=== PATIENT | male | born 1990 | race Caucasian/White ===

== ENCOUNTER 2023-02-24 09:02 | Observation (INO) | payer OTHER ==
[~2023-02-24] VITALS: Ht 193 cm; Wt 78.9 kg
[~2023-02-24 09:02] MED LIST: ALBU90OI; AZIT250 PO; Prilosec20 MG PO; SULTRIDS
[2023-02-24 10:07] LABS: BASOPHILS ABSOLUTE AUTO 0.06 K/mm3 (0.00-0.23); BASOPHILS PERCENT AUTO 0 % (0-2); EOSINOPHILS ABSOLUTE AUTO 0.01 K/mm3 (0.00-0.68); EOSINOPHILS PERCENT AUTO 0 % (0-6); Hematocrit 53.8 % (37.0-53.0); Hemoglobin 19.3 g/dL (13.5-17.5); IMMATURE GRAN ABSOLUTE AUTO 0.15 K/mm3 (0.00-0.10); IMMATURE GRAN PERCENT AUTO 1 % (0-1); LYMPHOCYTES ABSOLUTE AUTO 2.94 K/mm3 (0.84-5.20); LYMPHOCYTES PERCENT AUTO 12 % (21-46); MONOCYTES ABSOLUTE AUTO 1.29 K/mm3 (0.16-1.47); MONOCYTES PERCENT AUTO 5 % (4-13); Mean Corpuscular HGB 30.7 pg (26.0-34.0); Mean Corpuscular HGB Conc 35.9 g/dL (31.5-36.5); Mean Corpuscular Volume 86 fL (80-100); Mean Platelet Volume 10.2 fL (9.1-12.4); NEUTROPHILS ABSOLUTE AUTO 19.63 K/mm3 (1.96-9.15); NEUTROPHILS PERCENT AUTO 82 % (41-73); Platelet Count 473 K/mm3 (150-400); RDW Coefficient Variation 12.1 % (11.7-14.2); Red Blood Cell Count 6.28 M/mm3 (4.30-5.90); White Blood Cell Count 24.08 K/mm3 (4.00-11.30)
[2023-02-24 10:28] LABS: Albumin, Blood 4.7 g/dL (3.4-5.0); Bun/Creatinine Ratio 19.6 (12.0-20.0); Calcium, Blood 11.5 mg/dL (8.5-10.1); Creatinine, Blood 1.94 mg/dL (0.60-1.20); Globulin, Blood 4.9 g/dL (2.2-4.0); Potassium, Blood 3.7 mmol/L (3.5-5.5); Total Protein, Blood 9.6 g/dL (6.4-8.2)
[2023-02-24 13:09] LABS: Source, Urine Clean Catch
[2023-02-24 13:12] LABS: Appearance, Urine Clear (Clear); Bilirubin, Urine Neg (Neg); Blood, Urine 4+ (Neg); Color, Urine Amber (P-Yellow); Glucose Qualitative, Urine Neg (Neg); Ketones, Urine 4+ (Neg); Leukocyte Esterase, Urine Neg (Neg); Nitrite, Urine Neg (Neg); Protein, Urine 3+ (Neg); Urobilinogen, Urine NORM (Normal)
[2023-02-24 13:30] LABS: Amorphous Light (0-Heavy); Bacteria Few /hpf; Squamous Epithelial Cells Rare /hpf (Few)
[2023-02-24 13:39] LABS: U Amphetamine Screen Not Detected; U Barbituate Screen Not Detected; U Benzodiazapine Screen Not Detected; U Buprenorphine Screen Not Detected; U Cannabinoids Screen DETECTED; U Cocaine Screen Not Detected; U Methadone Screen Not Detected; U Methamphetamine Screen Not Detected; U Opiates Screen Not Detected; U Oxycodone Screen Not Detected; U Phencyclidine Screen Not Detected; U Propoxyphene Screen Not Detected
[2023-02-24 14:23] VITALS: BP 134/87
[2023-02-24] MEDS ORDERED: DOXYLAMINE SUCCINATE PO (14:36)
[2023-02-24 16:07] VITALS: BP 149/90
[2023-02-24 16:57] LABS: Bun/Creatinine Ratio 22.4 (12.0-20.0); Creatinine, Blood 1.34 mg/dL (0.60-1.20); Potassium, Blood 3.9 mmol/L (3.5-5.5)
[2023-02-24 16:59] LABS: Calcium, Blood 9.4 mg/dL (8.5-10.1)
--- NOTE | 2023-02-24 17:42 | NUR ---
SHIFT SUMMARY ARRIVED TO FLOOR THIS SHIFT FROM ED. NO C/O NAUSEA OR VOMITING THIS SHIFT, TOLERATING REGULAR DIET SO FAR. VOIDING WELL WITH NO COMPLICATIONS. NO C/O PAIN. RUNNING FLUIDS. WILL CONTIUE TO MONITOR
[2023-02-24 19:34] VITALS: BP 128/74
--- NOTE | 2023-02-25 03:37 | NUR ---
REPORT RECIEVED A/O VSS QUIET IN RM NO S/S OF DISTRESS WILL CONT TO MONITOR PT, PT INDEPENDANT IN RM.
[2023-02-25 03:38] VITALS: BP 118/74
[2023-02-25 05:31] LABS: BASOPHILS ABSOLUTE AUTO 0.03 K/mm3 (0.00-0.23); BASOPHILS PERCENT AUTO 0 % (0-2); EOSINOPHILS ABSOLUTE AUTO 0.01 K/mm3 (0.00-0.68); EOSINOPHILS PERCENT AUTO 0 % (0-6); Hemoglobin 15.6 g/dL (13.5-17.5); IMMATURE GRAN ABSOLUTE AUTO 0.11 K/mm3 (0.00-0.10); IMMATURE GRAN PERCENT AUTO 1 % (0-1); LYMPHOCYTES ABSOLUTE AUTO 3.57 K/mm3 (0.84-5.20); LYMPHOCYTES PERCENT AUTO 16 % (21-46); MONOCYTES ABSOLUTE AUTO 2.16 K/mm3 (0.16-1.47); MONOCYTES PERCENT AUTO 10 % (4-13); Mean Corpuscular HGB 30.6 pg (26.0-34.0); Mean Corpuscular HGB Conc 35.5 g/dL (31.5-36.5); Mean Corpuscular Volume 86 fL (80-100); Mean Platelet Volume 10.6 fL (9.1-12.4); NEUTROPHILS ABSOLUTE AUTO 16.64 K/mm3 (1.96-9.15); NEUTROPHILS PERCENT AUTO 74 % (41-73); Platelet Count 344 K/mm3 (150-400); RDW Coefficient Variation 12.2 % (11.7-14.2); RDW Standard Deviation 38.4 fL (35.1-46.3); White Blood Cell Count 22.52 K/mm3 (4.00-11.30)
[2023-02-25 05:51] LABS: Albumin, Blood 3.6 g/dL (3.4-5.0); Bilirubin, Total 1.2 mg/dL (0.1-1.0); Bun/Creatinine Ratio 17.3 (12.0-20.0); Calcium, Blood 9.4 mg/dL (8.5-10.1); Creatinine, Blood 1.04 mg/dL (0.60-1.20); Globulin, Blood 3.7 g/dL (2.2-4.0); Potassium, Blood 3.6 mmol/L (3.5-5.5); Total Protein, Blood 7.3 g/dL (6.4-8.2)
--- NOTE | 2023-02-25 05:55 | NUR ---
SHIFT SUMMARY UNEVENTFUL NIGHT, PT SAYS HE FEELS MUCH BETTER. I ENC FLUIDS AND SLEEP WHICH THE PT DID, HE SLEPT ALL NIGHT. MORNING MED FOR STOMACH WERE GIVEN EARLY DUE TO DISCOMFORT, POSSIBLE DC TODAY.
[2023-02-25 08:12] VITALS: BP 118/76
[2023-02-25] MEDS ORDERED: AMOX-CLAV 875-1 EAC5 PO (12:26)
[2023-02-25] MEDS ORDERED: PANTOPRAZOLE SO2010 PO (12:28)
--- NOTE | 2023-02-25 14:17 | NUR ---
DISCHARGE SUMMARY DISCHARGE PACKET PROVIDED, QUESTIONS ANSWERED. IV REMOVED PRIOR TO DISCHARGE. EDUCATION PROVIDED IN DISCHARGE PACKET.
== END 2023-02-25 13:42 | disposition home or self-care (01) ==
LOC: ER 09:02 → MEDS 09:03
PROVIDERS: Emergency Medicine; Family Medicine; Physician Assistant; ADMIT Internal Medicine
DX: E86.0 Dehydration (principal); N17.9 Acute kidney failure, unspecified; T67.5XXA Heat exhaustion, unspecified, initial encounter; X58.XXXA Exposure to other specified factors, initial encounter; E87.1 Hypo-osmolality and hyponatremia; E87.20 Acidosis, unspecified; K04.7 Periapical abscess without sinus; R11.2 Nausea with vomiting, unspecified; F17.210 Nicotine dependence, cigarettes, uncomplicated; K21.9 Gastro-esophageal reflux disease without esophagitis
CPT/HCPCS: 36415; 80048; 80053; 81001; 82800; 83690; 85025; 96361; 96374; 96375; 96376; 99285-25; A9270; C9113; G0378; G0480; J2405; J7030; J7120

== ENCOUNTER → 2024-01-24 | Outpatient (CLI) | payer OTHER ==
[~2024-01-24] MED LIST changes: +AMOX-CLAV 875-1 EAC5 PO; +DOXYLAMINE SUCCINATE PO; +PANTOPRAZOLE SO2010 PO
[2024-01-24 19:12] LABS: Hematocrit 46.7 % (37.0-53.0); Hemoglobin 15.7 g/dL (13.5-17.5); Mean Corpuscular HGB Conc 33.6 g/dL (31.5-36.5); Mean Corpuscular Volume 92 fL (80-100); Mean Platelet Volume 10.6 fL (9.1-12.4); Platelet Count 341 K/mm3 (150-400); RDW Coefficient Variation 13.1 % (11.7-14.2); RDW Standard Deviation 44.6 fL (35.1-46.3); Red Blood Cell Count 5.06 M/mm3 (4.30-5.90)
[2024-01-24 19:27] LABS: Albumin, Blood 4.4 g/dL (3.4-5.0); Albumin/Globulin Ratio 1.2 (0.8-1.8); Bilirubin, Direct 0.2 mg/dL (0.0-0.3); Bilirubin, Indirect 1.1 mg/dL (0.1-0.7); Bilirubin, Total 1.3 mg/dL (0.1-1.0); Bun/Creatinine Ratio 16.4 (12.0-20.0); Calcium, Blood 9.2 mg/dL (8.5-10.1); Creatinine, Blood 0.98 mg/dL (0.60-1.20); Globulin, Blood 3.8 g/dL (2.2-4.0); Potassium, Blood 4.1 mmol/L (3.5-5.5); Total Protein, Blood 8.2 g/dL (6.4-8.2)
[2024-01-24 19:30] LABS: BASOPHILS PERCENT MAN 0 % (0-2); EOSINOPHILS PERCENT MAN 0 % (0-6); LYMPHOCYTES % ATYPICAL MANUAL 1 % (0-0); LYMPHOCYTES ABSOLUTE MAN 4.09 K/mm3 (0.84-5.20); LYMPHOCYTES PERCENT MAN 32 % (21-46); MONOCYTES ABSOLUTE MAN 0.74 K/mm3 (0.16-1.47); MONOCYTES PERCENT MAN 6 % (4-13); NEUTROPHILS ABSOLUTE MAN 7.56 K/mm3 (1.96-9.15); SEG NEUTROPHILS PERCENT MAN 61 % (41-73); TOTAL CELLS COUNTED 100
== END ==
LOC: LAB SHORT 14:45 → LAB 14:45
PROVIDERS: Nurse Practitioner
DX: K92.0 Hematemesis (principal); K25.3 Acute gastric ulcer without hemorrhage or perforation
CPT/HCPCS: 80053; 82248; 85007; 85027